=== PATIENT | female | born 1965 | race Caucasian/White ===

== ENCOUNTER 2020-01-21 22:13 | Inpatient (IN) | payer MEDICARE ==
[~2020-01-21] VITALS: Ht 172.7 cm; Wt 100.0 kg
[2020-01-22 00:03] VITALS: BP 100/59
[2020-01-22] MEDS ORDERED: morphine SULFATE 10 MG/ML, 1ML IVPush PRN (00:30)
[2020-01-22] MEDS ORDERED: hydrALAzine 20 MG/ML, 1ML IVPush PRN (00:30)
[2020-01-22] MEDS ORDERED: POLYETHYLENE GLYCOL 17 GM PACKET PO PRN (00:30)
[2020-01-22] MEDS ORDERED: PLEASE ENTER ALLERGIES MC SCH (00:30)
[2020-01-22] MEDS ORDERED: ONDANSETRON 2MG/ML, 2ML IVPush PRN (00:30)
[2020-01-22] MEDS ORDERED: CYCL-259 PO (00:57)
[2020-01-22] MEDS ORDERED: ESTR42.53 TP (00:57)
[2020-01-22] MEDS ORDERED: [UNRECOGNIZED DRUG - CODE] TP (00:57)
[2020-01-22] MEDS ORDERED: LEVO125T PO (00:57)
[2020-01-22] MEDS ORDERED: CLOT15CR6 TP (00:57)
[2020-01-22] MEDS ORDERED: OXYC-307 PO (00:57)
[2020-01-22] MEDS ORDERED: CALC0.25 PO (00:57)
[2020-01-22] MEDS ORDERED: MORP-52 PO (00:57)
[2020-01-22] MEDS ORDERED: PHEN15CA2 PO (00:57)
[2020-01-22] MEDS ORDERED: LIOT5TAB10 PO (00:57)
[2020-01-22] MEDS: CEFTRIAXONE PMX 1GM/50ML 50 ML IV SCH (01:12)
[2020-01-22] MEDS: AZITHROMYCIN 500 MG in SODIUM CHLORIDE 0.9% 250 ML IV SCH (01:12)
[2020-01-22 04:00] VITALS: BP 95/56
[2020-01-22] MEDS: ACETAMINOPHEN 325 MG TABLET PO PRN (04:23)
[2020-01-22 04:48] LABS: BASOPHILS # (AUTO) 0.01 x10^3/uL (0-0.1); BASOPHILS % (AUTO) 0 % (0-1); EOSINOPHILS % (AUTO) 0 % (1-7); LYMPHOCYTES # (AUTO) 0.58 x10^3/uL (1-3.4); LYMPHOCYTES % (AUTO) 13 % (22-44); MD NO; MEAN CORPUSCULAR HEMOGLOBIN 27.8 pg (27.0-34.8); MEAN CORPUSCULAR HGB CONC 32.7 g/dL (32.4-35.8); MEAN CORPUSCULAR VOLUME 84.9 fL (80-100); MONOCYTES # (AUTO) 0.24 x10^3/uL (0.2-0.8); MONOCYTES % (AUTO) 5 % (2-9); NEUTROPHILS # (AUTO) 3.74 x10^3/uL (1.8-6.8); NEUTROPHILS % (AUTO) 82 % (42-75); PLATELET COUNT 189 x10^3/uL (130-400); RED CELL DISTRIBUTION WIDTH 14.3 % (9.6-15.2)
[2020-01-22 04:52] LABS: ANION GAP 4 mmol/L (5-15); CALCIUM 7.8 mg/dL (8.5-10.1); CHLORIDE 103 mmol/L (98-107); CREATININE 0.77 mg/dL (0.55-1.02)
[2020-01-22] MEDS: LEVOTHYROXINE 125 MCG TABLET PO SCH (05:02)
[2020-01-22 05:20] LABS: FREE T4 (FREE THYROXINE) 0.94 ng/dL (0.76-1.46)
[2020-01-22] MEDS: LIOTHYRONINE 5 MCG TABLET PO SCH (08:51)
[2020-01-22] MEDS ORDERED: REMDESIVIR 200 MG in SODIUM CHLORIDE 0.9% 250 ML IVPB ONE (09:00)
[2020-01-22] MEDS ORDERED: CALCITRIOL 0.25 MCG CAPSULE PO SCH (09:00)
[2020-01-22 09:17] LABS: ALANINE AMINOTRANSFERASE 16 U/L (12-78); ALKALINE PHOSPHATASE 68 U/L (45-117)
[2020-01-22] MEDS ORDERED: SODIUM CHLORIDE 0.9% IVPB ONE (09:30)
[2020-01-22] MEDS ORDERED: REMDESIVIR IVPB ONE (09:30)
[2020-01-22] MEDS: methylPREDNISolone SOD SUCC 40 MG/ML IV SCH ×2 (09:34→21:36)
[2020-01-22] MEDS ORDERED: FUROSEMIDE 40 MG/4 ML IV ONE (15:00)
[2020-01-22] MEDS: CHOLECALCIFEROL 5,000u TAB PO SCH (15:56)
[2020-01-22] MEDS: ASCORBIC ACID 500 MG TABLET PO SCH ×2 (15:57→21:36)
[2020-01-22] MEDS: ZINC SULFATE 220 MG CAPSULE PO SCH (16:00)
[2020-01-22] MEDS ORDERED: MORPHINE SULFATE 4 MG/ML, 1ML ONE (16:26)
[2020-01-22] MEDS: ENOXAPARIN 40 MG/0.4 ML SQ SCH (18:10)
[2020-01-22] MEDS ORDERED: MORPHINE SULFATE 4 MG/ML, 1ML IVPush PRN (18:29)
[2020-01-23] MEDS: CEFTRIAXONE PMX 1GM/50ML 50 ML IV SCH (00:22)
[2020-01-23] MEDS: AZITHROMYCIN 500 MG in SODIUM CHLORIDE 0.9% 250 ML IV SCH (01:00)
[2020-01-23 04:10] VITALS: BP 99/62
[2020-01-23 04:51] LABS: BASOPHILS % (AUTO) 0 % (0-1); EOSINOPHILS % (AUTO) 0 % (1-7); LYMPHOCYTES # (AUTO) 0.42 x10^3/uL (1-3.4); LYMPHOCYTES % (AUTO) 10 % (22-44); MD NO; MEAN CORPUSCULAR HEMOGLOBIN 27.8 pg (27.0-34.8); MEAN CORPUSCULAR HGB CONC 32.6 g/dL (32.4-35.8); MEAN CORPUSCULAR VOLUME 85.3 fL (80-100); MEAN PLATELET VOLUME 8.4 fL (7.4-10.4); MONOCYTES # (AUTO) 0.17 x10^3/uL (0.2-0.8); MONOCYTES % (AUTO) 4 % (2-9); NEUTROPHILS # (AUTO) 3.58 x10^3/uL (1.8-6.8); NEUTROPHILS % (AUTO) 86 % (42-75); PLATELET COUNT 251 x10^3/uL (130-400); RED BLOOD COUNT 4.67 x10^6/uL (3.82-5.3); RED CELL DISTRIBUTION WIDTH 14.1 % (9.6-15.2)
[2020-01-23 05:01] LABS: ALANINE AMINOTRANSFERASE 16 U/L (12-78); ALBUMIN 2.6 g/dL (3.4-5.0); ANION GAP 4 mmol/L (5-15); CALCIUM 8.2 mg/dL (8.5-10.1); CHLORIDE 101 mmol/L (98-107); CREATININE 0.77 mg/dL (0.55-1.02)
[2020-01-23 05:04] LABS: ALKALINE PHOSPHATASE 73 U/L (45-117); BILIRUBIN,TOTAL 0.6 mg/dL (0.2-1.0); TOTAL PROTEIN 6.9 g/dL (6.4-8.2)
[2020-01-23] MEDS: LEVOTHYROXINE 125 MCG TABLET PO SCH (05:58)
[2020-01-23] MEDS: ASCORBIC ACID 500 MG TABLET PO SCH ×2 (08:59→21:05)
[2020-01-23] MEDS: methylPREDNISolone SOD SUCC 40 MG/ML IV SCH ×2 (09:00→21:04)
[2020-01-23] MEDS: CHOLECALCIFEROL 5,000u TAB PO SCH (09:00)
[2020-01-23] MEDS: ZINC SULFATE 220 MG CAPSULE PO SCH (09:01)
[2020-01-23] MEDS: REMDESIVIR 100 MG in SODIUM CHLORIDE 0.9% 250 ML IVPB SCH (10:07)
[2020-01-23] MEDS: LIOTHYRONINE 5 MCG TABLET PO SCH (10:07)
[2020-01-23] MEDS: ACETAMINOPHEN 325 MG TABLET PO PRN (13:43)
[2020-01-23] MEDS: ENOXAPARIN 40 MG/0.4 ML SQ SCH (17:27)
[2020-01-24] MEDS: AZITHROMYCIN 500 MG in SODIUM CHLORIDE 0.9% 250 ML IV SCH (00:17)
[2020-01-24] MEDS: CEFTRIAXONE PMX 1GM/50ML 50 ML IV SCH ×2 (00:17→23:39)
[2020-01-24] MEDS ORDERED: MIDAZOLAM 1 MG/ML, 2ML IVPush ONE (00:30)
[2020-01-24] MEDS ORDERED: MIDAZOLAM 1 MG/ML, 2ML ONE (00:32)
[2020-01-24 04:49] LABS: INTERNATIONAL NORMALIZED RATIO 0.94 (0.93-1.1)
[2020-01-24 04:53] LABS: ALBUMIN 2.5 g/dL (3.4-5.0); ANION GAP 6 mmol/L (5-15); CALCIUM 7.9 mg/dL (8.5-10.1); CHLORIDE 105 mmol/L (98-107)
[2020-01-24 04:56] LABS: ALANINE AMINOTRANSFERASE 15 U/L (12-78); ALKALINE PHOSPHATASE 66 U/L (45-117); BILIRUBIN,TOTAL 0.4 mg/dL (0.2-1.0); CREATININE 0.71 mg/dL (0.55-1.02); TOTAL PROTEIN 6.4 g/dL (6.4-8.2)
[2020-01-24 06:00] VITALS: BP 90/50
[2020-01-24] MEDS: LEVOTHYROXINE 125 MCG TABLET PO SCH (06:05)
[2020-01-24] MEDS: LIOTHYRONINE 5 MCG TABLET PO SCH ×2 (09:09→20:22)
[2020-01-24] MEDS: ASCORBIC ACID 500 MG TABLET PO SCH ×2 (09:10→20:23)
[2020-01-24] MEDS: FUROSEMIDE 40 MG/4 ML IV SCH ×2 (09:10→15:59)
[2020-01-24] MEDS: methylPREDNISolone SOD SUCC 40 MG/ML IV SCH ×2 (09:10→20:22)
[2020-01-24] MEDS: ZINC SULFATE 220 MG CAPSULE PO SCH (09:10)
[2020-01-24] MEDS: CHOLECALCIFEROL 5,000u TAB PO SCH (09:10)
[2020-01-24] MEDS: POTASSIUM CHLORIDE 20 MEQ TAB.ER.PRT PO SCH ×3 (09:10→20:22)
[2020-01-24] MEDS: REMDESIVIR 100 MG in SODIUM CHLORIDE 0.9% 250 ML IVPB SCH (09:17)
[2020-01-24] MEDS: ENOXAPARIN 40 MG/0.4 ML SQ SCH (15:58)
[2020-01-25] MEDS: AZITHROMYCIN 500 MG in SODIUM CHLORIDE 0.9% 250 ML IV SCH (00:21)
[2020-01-25 04:27] VITALS: BP 108/56
[2020-01-25 04:38] LABS: ALBUMIN 2.7 g/dL (3.4-5.0); ANION GAP 6 mmol/L (5-15); CALCIUM 8.2 mg/dL (8.5-10.1); CHLORIDE 105 mmol/L (98-107)
[2020-01-25 04:42] LABS: ALANINE AMINOTRANSFERASE 18 U/L (12-78); ALKALINE PHOSPHATASE 70 U/L (45-117); BASOPHILS % (AUTO) 0 % (0-1); BILIRUBIN,TOTAL 0.4 mg/dL (0.2-1.0); CREATININE 0.78 mg/dL (0.55-1.02); EOSINOPHILS # (AUTO) 0.02 x10^3/uL (0-0.4); EOSINOPHILS % (AUTO) 0 % (1-7); LYMPHOCYTES # (AUTO) 0.71 x10^3/uL (1-3.4); LYMPHOCYTES % (AUTO) 10 % (22-44); MD NO; MEAN CORPUSCULAR VOLUME 84.9 fL (80-100); MEAN PLATELET VOLUME 8.5 fL (7.4-10.4); MONOCYTES # (AUTO) 0.64 x10^3/uL (0.2-0.8); MONOCYTES % (AUTO) 9 % (2-9); NEUTROPHILS # (AUTO) 5.75 x10^3/uL (1.8-6.8); NEUTROPHILS % (AUTO) 81 % (42-75); PLATELET COUNT 369 x10^3/uL (130-400); RED BLOOD COUNT 4.76 x10^6/uL (3.82-5.3); RED CELL DISTRIBUTION WIDTH 14.2 % (9.6-15.2); TOTAL PROTEIN 6.8 g/dL (6.4-8.2)
[2020-01-25] MEDS: LEVOTHYROXINE 125 MCG TABLET PO SCH (05:45)
[2020-01-25] MEDS ORDERED: SENNA/DOCUSATE TABLET ONE (09:29)
[2020-01-25] MEDS: CHOLECALCIFEROL 5,000u TAB PO SCH (09:33)
[2020-01-25] MEDS: ZINC SULFATE 220 MG CAPSULE PO SCH (09:33)
[2020-01-25] MEDS: methylPREDNISolone SOD SUCC 40 MG/ML IV SCH ×2 (09:33→20:02)
[2020-01-25] MEDS: ASCORBIC ACID 500 MG TABLET PO SCH ×2 (09:36→20:03)
[2020-01-25] MEDS ORDERED: SENNOSIDES 8.6 MG TABLET PO PRN (10:00)
[2020-01-25] MEDS: REMDESIVIR 100 MG in SODIUM CHLORIDE 0.9% 250 ML IVPB SCH (10:22)
[2020-01-25] MEDS ORDERED: FUROSEMIDE 40 MG/4 ML IV ONE (11:00)
[2020-01-25] MEDS: ENOXAPARIN 100 MG/ML SQ SCH (12:25)
[2020-01-25] MEDS: LIOTHYRONINE 5 MCG TABLET PO SCH (20:03)
[2020-01-25] MEDS: TEMAZEPAM 15 MG CAPSULE PO PRN (21:56)
[2020-01-26] MEDS: ENOXAPARIN 100 MG/ML SQ SCH ×2 (01:29→12:56)
[2020-01-26] MEDS: CEFTRIAXONE PMX 1GM/50ML 50 ML IV SCH (01:29)
[2020-01-26] MEDS: AZITHROMYCIN 500 MG in SODIUM CHLORIDE 0.9% 250 ML IV SCH (02:47)
[2020-01-26 03:00] VITALS: BP 116/67
[2020-01-26 05:06] LABS: ALBUMIN 2.7 g/dL (3.4-5.0); ANION GAP 9 mmol/L (5-15); CALCIUM 8.2 mg/dL (8.5-10.1); CHLORIDE 104 mmol/L (98-107)
[2020-01-26 05:09] LABS: ALANINE AMINOTRANSFERASE 20 U/L (12-78); ALKALINE PHOSPHATASE 71 U/L (45-117); BILIRUBIN,TOTAL 0.4 mg/dL (0.2-1.0); CREATININE 0.82 mg/dL (0.55-1.02); TOTAL PROTEIN 6.6 g/dL (6.4-8.2)
[2020-01-26] MEDS: LEVOTHYROXINE 125 MCG TABLET PO SCH (06:15)
[2020-01-26] MEDS: ASCORBIC ACID 500 MG TABLET PO SCH ×2 (08:06→20:10)
[2020-01-26] MEDS: methylPREDNISolone SOD SUCC 40 MG/ML IV SCH ×2 (08:06→20:09)
[2020-01-26] MEDS: LIOTHYRONINE 5 MCG TABLET PO SCH (08:07)
[2020-01-26] MEDS: CHOLECALCIFEROL 5,000u TAB PO SCH (08:07)
[2020-01-26] MEDS: ZINC SULFATE 220 MG CAPSULE PO SCH (08:07)
[2020-01-26] MEDS ORDERED: LACTULOSE 20 GM/30 ML UDC PO PRN ×2 (09:00→10:00)
[2020-01-26] MEDS ORDERED: BISACODYL 10 MG SUPP PR PRN (09:00)
[2020-01-26] MEDS ORDERED: METHYLNALTREXONE 12 MG/0.6 ML SYR SQ ONE (10:00)
[2020-01-26] MEDS: REMDESIVIR 100 MG in SODIUM CHLORIDE 0.9% 250 ML IVPB SCH (10:20)
[2020-01-26] MEDS: DOCUSATE 100 MG CAPSULE PO SCH (10:21)
[2020-01-26] MEDS ORDERED: FUROSEMIDE 40 MG/4 ML IV ONE (12:00)
[2020-01-26] MEDS ORDERED: POTASSIUM CHLORIDE 20 MEQ TAB.ER.PRT PO ONE (12:00)
[2020-01-26 14:00] VITALS: BP 99/63
[2020-01-26 20:05] VITALS: BP 108/68
[2020-01-26] MEDS: SENNA/DOCUSATE TABLET PO SCH (20:09)
[2020-01-26] MEDS: TEMAZEPAM 15 MG CAPSULE PO PRN (20:09)
[2020-01-27] MEDS: ENOXAPARIN 100 MG/ML SQ SCH (00:46)
[2020-01-27] MEDS: CEFTRIAXONE PMX 1GM/50ML 50 ML IV SCH (00:46)
[2020-01-27 00:51] VITALS: BP 99/67
[2020-01-27] MEDS: LEVOTHYROXINE 125 MCG TABLET PO SCH (05:01)
[2020-01-27 05:34] LABS: ANION GAP 5 mmol/L (5-15); CALCIUM 8.6 mg/dL (8.5-10.1); CHLORIDE 101 mmol/L (98-107); CREATININE 0.74 mg/dL (0.55-1.02)
[2020-01-27 06:38] VITALS: BP 93/64
[2020-01-27] MEDS ORDERED: KETOROLAC 30 MG/1 ML IM PRN (07:30)
[2020-01-27] MEDS ORDERED: ACETAMINOPHEN 325 MG TABLET PO PRN (07:30)
[2020-01-27] MEDS: BISACODYL 10 MG SUPP PR SCH (08:26)
[2020-01-27] MEDS: DOCUSATE 100 MG CAPSULE PO SCH (08:35)
[2020-01-27] MEDS: ASCORBIC ACID 500 MG TABLET PO SCH ×2 (08:35→20:35)
[2020-01-27] MEDS: ZINC SULFATE 220 MG CAPSULE PO SCH (08:36)
[2020-01-27] MEDS: CHOLECALCIFEROL 5,000u TAB PO SCH (08:36)
[2020-01-27] MEDS ORDERED: MORPHINE SULFATE 4 MG/ML, 1ML IVPush PRN (09:29)
[2020-01-27] MEDS: ENOXAPARIN 40 MG/0.4 ML SQ SCH (11:59)
[2020-01-27 12:17] VITALS: BP 103/69
[2020-01-27 18:35] VITALS: BP 86/60
[2020-01-27] MEDS: SENNA/DOCUSATE TABLET PO SCH (20:35)
[2020-01-27 20:43] VITALS: BP 92/60
[2020-01-27] MEDS ORDERED: LIOTHYRONINE 5 MCG TABLET PO SCH (21:00)
[2020-01-28 00:26] VITALS: BP 88/58
[2020-01-28] MEDS: LEVOTHYROXINE 125 MCG TABLET PO SCH (05:11)
[2020-01-28 06:43] VITALS: BP 90/53
[2020-01-28] MEDS ORDERED: MAGNESIUM CITRATE 300ML ORAL SOL PO ONE (07:00)
[2020-01-28] MEDS ORDERED: METHYLNALTREXONE 12 MG/0.6 ML SYR SQ ONE (07:30)
[2020-01-28 08:27] LABS: ANION GAP 6 mmol/L (5-15); CALCIUM 8.3 mg/dL (8.5-10.1); CHLORIDE 100 mmol/L (98-107)
[2020-01-28] MEDS: DOCUSATE 100 MG CAPSULE PO SCH (08:36)
[2020-01-28] MEDS: ASCORBIC ACID 500 MG TABLET PO SCH (08:37)
[2020-01-28] MEDS: ZINC SULFATE 220 MG CAPSULE PO SCH (08:37)
[2020-01-28] MEDS: BISACODYL 10 MG SUPP PR SCH (08:37)
[2020-01-28] MEDS: CHOLECALCIFEROL 5,000u TAB PO SCH (08:37)
[2020-01-28] MEDS ORDERED: SENN-99 PO (09:04)
[2020-01-28] MEDS: ENOXAPARIN 40 MG/0.4 ML SQ SCH (11:36)
== END 2020-01-28 15:26 | disposition home or self-care (01) | DRG 871 ==
LOC: ICU 23:17 → 4NW 01-26 19:57
PROVIDERS: ADMIT Family Medicine; ATTEND Internal Medicine
DX: A41.89 Other specified sepsis (principal); U07.1 COVID-19; J12.89 Other viral pneumonia; J96.01 Acute respiratory failure with hypoxia; F11.20 Opioid dependence, uncomplicated; E87.1 Hypo-osmolality and hyponatremia; E03.9 Hypothyroidism, unspecified; E66.9 Obesity, unspecified; E87.6 Hypokalemia; F41.9 Anxiety disorder, unspecified; G89.29 Other chronic pain; K59.03 Drug induced constipation; L30.9 Dermatitis, unspecified; T40.605A Adverse effect of unspecified narcotics, initial encounter; Z96.641 Presence of right artificial hip joint; Z96.653 Presence of artificial knee joint, bilateral; M54.9 Dorsalgia, unspecified; M54.5 Low back pain; R43.9 Unspecified disturbances of smell and taste; Z82.0 Family history of epilepsy and other diseases of the nervous system; Z87.891 Personal history of nicotine dependence; Z98.1 Arthrodesis status; Z88.8 Allergy status to other drugs, medicaments and biological substances
CPT/HCPCS: 36415; 36600; 71045; 80048; 80053; 82803; 83880; 84075; 84439; 84443; 84450; 84460; 85025; 85610; 87081; G0378; J0456; J0696; J1650; J1940; J2250; J2405; J2270; J2920; J7050

== ENCOUNTER 2020-05-11 09:52 | Inpatient (IN) | payer MEDICARE ==
[2020-05-08 11:41] LABS: BASOPHILS # (AUTO) 0.04 x10^3/uL (0-0.1); BASOPHILS % (AUTO) 1 % (0-1); EOSINOPHILS # (AUTO) 0.07 x10^3/uL (0-0.4); EOSINOPHILS % (AUTO) 2 % (1-7); LYMPHOCYTES % (AUTO) 35 % (22-44); MD NO; MEAN CORPUSCULAR HEMOGLOBIN 28.4 pg (27.0-34.8); MEAN CORPUSCULAR HGB CONC 32.3 g/dL (32.4-35.8); MONOCYTES # (AUTO) 0.31 x10^3/uL (0.2-0.8); MONOCYTES % (AUTO) 7 % (2-9); NEUTROPHILS % (AUTO) 56 % (42-75); PLATELET COUNT 245 x10^3/uL (130-400); RED BLOOD COUNT 5.49 x10^6/uL (3.82-5.3); RED CELL DISTRIBUTION WIDTH 12.9 % (9.6-15.2)
[2020-05-08 11:48] LABS: INTERNATIONAL NORMALIZED RATIO 0.95 (0.93-1.1); PROTHROMBIN TIME 9.8 Seconds (9.6-11.5)
[2020-05-08 11:49] LABS: ANION GAP 7 mmol/L (5-15); CALCIUM 9.8 mg/dL (8.5-10.1); CHLORIDE 108 mmol/L (98-107); CREATININE 0.81 mg/dL (0.55-1.02)
[~2020-05-11] VITALS: Ht 172.7 cm; Wt 88.8 kg
[~2020-05-11 09:52] MED LIST: CALC0.25 PO; CLOT15CR6 TP; CYCL-259 PO; ESTR42.53 TP; LEVO125T PO; LIOT5TAB10 PO; MORP-52 PO; OXYC-307 PO; PHEN15CA2 PO; SENN-99 PO; [UNRECOGNIZED DRUG - CODE] TP
[2020-05-11] MEDS ORDERED: CHLORHEXIDINE 15 ML UDC MM STA (10:05)
[2020-05-11] MEDS ORDERED: CHLORHEXIDINE 15 ML UDC ONE (10:11)
[2020-05-11] MEDS: POTASSIUM CHLORIDE 20 MEQ in D5%-0.45% NACL 1,000 ML IV SCH ×2 (10:18→20:24)
[2020-05-11] MEDS ORDERED: MAGNESIUM HYDROXIDE 8%, 30ML UDC PO PRN (10:30)
[2020-05-11] MEDS ORDERED: SENNA/DOCUSATE TABLET PO PRN (10:30)
[2020-05-11] MEDS ORDERED: OXYcodone IR 5MG TABLET PO PRN (10:30)
[2020-05-11] MEDS ORDERED: ALUMINUM/MAG/SIMETHICONE 30 ML UDC PO PRN (10:30)
[2020-05-11] MEDS ORDERED: DIPHENHYDRAMINE 50 MG/ML, 1ML IVPush PRN (10:30)
[2020-05-11] MEDS ORDERED: CEFAZOLIN PMX 1GM/50ML 50 ML IVPB SCH (10:30)
[2020-05-11] MEDS ORDERED: DEXAMETHASONE 4 MG/ML, 1ML IVPush SCH (10:30)
[2020-05-11] MEDS ORDERED: ACETAMINOPHEN 650 MG/20.3 ML UDC PO PRN (10:30)
[2020-05-11] MEDS ORDERED: DIPHENHYDRAMINE 50 MG CAPSULE PO PRN (10:30)
[2020-05-11] MEDS ORDERED: BISACODYL 10 MG SUPP PR PRN (10:30)
[2020-05-11] MEDS ORDERED: ONDANSETRON 4 MG TABLET PO PRN (10:30)
[2020-05-11] MEDS ORDERED: KETOROLAC 30 MG/1 ML IV SCH (10:30)
[2020-05-11] MEDS ORDERED: HYDROmorphone 1 MG/ML, 1ML INJ IVPush PRN ×2 (10:30→13:30)
[2020-05-11] MEDS ORDERED: ONDANSETRON 2MG/ML, 2ML IVPush PRN (10:30)
[2020-05-11] MEDS ORDERED: TRANEXAMIC ACID 1,000 MG in SODIUM CHLORIDE 0.9% 100 ML IVPB ONE (10:30)
[2020-05-11] MEDS ORDERED: POLYETHYLENE GLYCOL 17 GM PACKET PO PRN (10:30)
[2020-05-11] MEDS ORDERED: TRANEXAMIC ACID 100 MG/ML, 10ML ONE ×2 (10:42→11:21)
[2020-05-11] MEDS ORDERED: EPINEPHRINE 1 MG/ML, 1ML ONE (10:43)
[2020-05-11] MEDS ORDERED: ROPIvacaine/PF 0.2%, 20 ML ONE (10:43)
[2020-05-11] MEDS ORDERED: KETOROLAC 60 MG/2 ML ONE ×2 (10:43→11:21)
[2020-05-11] MEDS ORDERED: SODIUM CHLORIDE 0.9% 0 ML ONE (10:43)
[2020-05-11] MEDS ORDERED: VANCOMYCIN 1,000 MG ONE ×2 (10:43→11:22)
[2020-05-11] MEDS ORDERED: LACTATED RINGERS 1,000 ML IV SCH (10:59)
[2020-05-11] MEDS ORDERED: GABAPENTIN 300 MG CAPSULE PO ONE (11:00)
[2020-05-11] MEDS ORDERED: ACETAMINOPHEN 500 MG TABLET PO ONE (11:00)
[2020-05-11] MEDS ORDERED: ACETAMINOPHEN 500 MG TABLET ONE (11:07)
[2020-05-11] MEDS ORDERED: GABAPENTIN 300 MG CAPSULE ONE (11:07)
[2020-05-11] MEDS ORDERED: SODIUM CHLORIDE 0.9% 50 ML ONE (11:22)
[2020-05-11] MEDS ORDERED: ROPIvacaine/PF 0.5%, 20 ML ONE (11:22)
[2020-05-11] MEDS ORDERED: VANCOMYCIN PMX 1GM/200ML 200 ML IVPB ONE (11:30)
[2020-05-11] MEDS ORDERED: MIDAZOLAM 1 MG/ML, 2ML ONE (11:31)
[2020-05-11] MEDS ORDERED: PROPOFOL 50 ML ONE ×2 (12:05→13:58)
[2020-05-11] MEDS ORDERED: ROPIvacaine/PF 0.2%, 100ML 550 ML (check volume) INJ ONE (12:30)
[2020-05-11] MEDS ORDERED: FENTANYL PF 250 MCG/5ML ONE ×2 (12:35→13:00)
[2020-05-11] MEDS ORDERED: CEFAZOLIN 1,000 MG ONE (12:48)
[2020-05-11] MEDS ORDERED: SUCCINYLCHOLINE 20 MG/ML, 10ML ONE (12:48)
[2020-05-11] MEDS ORDERED: ONDANSETRON 2MG/ML, 2ML ONE ×2 (12:48→13:37)
[2020-05-11] MEDS ORDERED: DEXAMETHASONE 4 MG/ML, 1ML ONE (12:48)
[2020-05-11] MEDS ORDERED: PROPOFOL 10 MG/ML, 20ML ONE (12:48)
[2020-05-11] MEDS ORDERED: GLYCOPYRROLATE 0.2MG/1ML, 5ML ONE (12:48)
[2020-05-11] MEDS ORDERED: NEOSTIGMINE 1 MG/ML, 10ML ONE (12:48)
[2020-05-11] MEDS ORDERED: FENTANYL PF 100 MCG/2ML ONE (13:12)
[2020-05-11] MEDS: FENTANYL PF 100 MCG/2ML IV PRN ×2 (13:15→13:35)
[2020-05-11] MEDS ORDERED: MEPERIDINE/PF 25MG/ML,1ML ONE (13:26)
[2020-05-11] MEDS ORDERED: LABETALOL 5MG/ML, 20ML IV PRN (13:30)
[2020-05-11] MEDS ORDERED: PROMETHAZINE 12.5 MG SUPP PR PRN (13:30)
[2020-05-11] MEDS ORDERED: MEPERIDINE/PF 25MG/0.5ML IVPush PRN (13:30)
[2020-05-11] MEDS ORDERED: LORazepam 2 MG/ML, 1ML IVPush PRN (13:30)
[2020-05-11] MEDS ORDERED: ACETAMINOPHEN 325 MG TABLET PO PRN (13:30)
[2020-05-11] MEDS ORDERED: METHOCARBAMOL 1,000 MG in DEXTROSE 5% 100 ML IV PRN (13:30)
[2020-05-11] MEDS ORDERED: OXYcodone 5 MG/5 ML ORAL.SOL UDC PO PRN (13:30)
[2020-05-11] MEDS ORDERED: EPHEDRINE 50 MG/ML, 1ML IVPush PRN (13:30)
[2020-05-11] MEDS ORDERED: hydrALAzine 20 MG/ML, 1ML IV PRN (13:30)
[2020-05-11] MEDS ORDERED: OXYcodone 5 MG/5 ML ORAL.SOL UDC ONE (13:37)
[2020-05-11] MEDS ORDERED: HYDROmorphone 1 MG/ML, 1ML INJ ONE (13:51)
[2020-05-11] MEDS ORDERED: LORazepam 2 MG/ML, 1ML ONE (13:51)
[2020-05-11] MEDS ORDERED: ROCURONIUM 10MG/ML,5ML ONE (15:49)
[2020-05-11] MEDS ORDERED: CLOTRIMAZOLE HOMETD PRN (16:30)
[2020-05-11] MEDS ORDERED: BETAMETHASONE DIP HOMETD PRN (16:30)
[2020-05-11] MEDS ORDERED: OXYcodone/APAP 10/325MG TABLET PO PRN (16:30)
[2020-05-11] MEDS ORDERED: CYCLOBENZAPRINE 10 MG TABLET PO PRN (16:30)
[2020-05-11 19:24] VITALS: BP 152/82
[2020-05-11 19:30] VITALS: BP 116/79
[2020-05-11] MEDS: KETOROLAC 30 MG/1 ML IV SCH (20:33)
[2020-05-11] MEDS: CEFAZOLIN PMX 1GM/50ML 50 ML IVPB SCH (20:33)
[2020-05-11] MEDS: ASPIRIN 81 MG TABLET EC PO SCH (20:34)
[2020-05-11] MEDS: DOCUSATE 100 MG CAPSULE PO SCH (20:34)
[2020-05-11 23:52] VITALS: BP 105/70
[2020-05-12 03:31] VITALS: BP 116/80
[2020-05-12] MEDS: CEFAZOLIN PMX 1GM/50ML 50 ML IVPB SCH (04:18)
[2020-05-12] MEDS: KETOROLAC 30 MG/1 ML IV SCH (04:18)
[2020-05-12] MEDS: POTASSIUM CHLORIDE 20 MEQ in D5%-0.45% NACL 1,000 ML IV SCH (05:57)
[2020-05-12] MEDS ORDERED: LEVOTHYROXINE 125 MCG TABLET PO SCH (06:00)
[2020-05-12 07:53] VITALS: BP 109/69
[2020-05-12] MEDS: ASPIRIN 81 MG TABLET EC PO SCH (08:32)
[2020-05-12] MEDS: DOCUSATE 100 MG CAPSULE PO SCH (08:34)
[2020-05-12] MEDS ORDERED: LIOTHYRONINE 5 MCG TABLET PO SCH (09:00)
[2020-05-12] MEDS ORDERED: TAMSULOSIN 0.4 MG CAP.ER.24H PO SCH (09:00)
[2020-05-12] MEDS ORDERED: CALCITRIOL 0.25 MCG CAPSULE PO SCH (09:00)
== END 2020-05-12 09:55 | disposition home or self-care (01) | DRG 488 ==
LOC: ORIP 09:52 → 4NE 15:30 → DCLOUNGE 05-12 09:48
PROVIDERS: ADMIT Orthopaedic Surgery; ATTEND Orthopaedic Surgery
PROC: 0SUW09Z Supplement Left Knee Joint, Tibial Surface with Liner, Open Approach (ICD-10-PCS; 2020-05-11)
PROC: 0SPD09Z Removal of Liner from Left Knee Joint, Open Approach (ICD-10-PCS; principal; 2020-05-11 12:00)
DX: T84.093A Other mechanical complication of internal left knee prosthesis, initial encounter (principal); R71.0 Precipitous drop in hematocrit; Z88.8 Allergy status to other drugs, medicaments and biological substances; Y83.8 Other surgical procedures as the cause of abnormal reaction of the patient, or of later complication, without mention of misadventure at the time of the procedure; Y92.89 Other specified places as the place of occurrence of the external cause
CPT/HCPCS: 36415; 80048; 83036; 85014; 85018; 85025; 85610; 85730; 87081; 87635; 87806; G0378; J0171; J0690; J1100; J1170; J1885; J2250; J2405; J2704; J2710; J2795; J3010; J3370; J3480; C1776; G0475; J0330; J2060; J2800; J7120